=== PATIENT | female | born 1970 | race Caucasian/White ===

== ENCOUNTER 2018-05-02 12:38 | Emergency (ER) | payer MEDICAID, OTHER ==
[~2018-05-02] VITALS: Ht 167.6 cm; Wt 86.2 kg
[2018-05-02 12:38] VITALS: BP_SYST 142
--- NOTE | 2018-05-02 12:38 | NUR ---
BROUGHT BACK TO BED #5 AND TRIAGED. REPORT GIVEN TO CLARISSE
--- NOTE | 2018-05-02 13:00 | NUR ---
DR ARELLANO AT BEDSIDE FOR EVALUATION
--- NOTE | 2018-05-02 13:02 | NUR ---
Pt AAOx4 ambulated into ED c/o swelling to L side of face, upper lip, and also c/o toothache. Denies trauma. No other injuries/complaints per pt/noted. Will continue to monitor.
[2018-05-02 13:11] VITALS: BP_SYST 133
--- NOTE | 2018-05-02 13:11 | NUR ---
Patient given written and verbal discharge instructions and verbalizes understanding. ER MD Jiménez discussed with patient the results and treatment provided. Patient in stable condition. ID arm band removed. Rx of Penicillin given. Patient educated on pain management and to follow up with PMD. Pain Scale 0. Opportunity for questions provided and answered. Medication side effect fact sheet provided.
== END 2018-05-02 13:11 | disposition home or self-care (01) ==
LOC: SED 12:38
DX: K13.0 Diseases of lips (principal); I10 Essential (primary) hypertension; Z86.79 Personal history of other diseases of the circulatory system; Z90.49 Acquired absence of other specified parts of digestive tract
CPT/HCPCS: 99283